=== PATIENT | male | born 1990 | race Two or more races ===

== ENCOUNTER 2017-02-09 01:32 | Emergency (ER) | payer MEDICAID, OTHER ==
[~2017-02-09] VITALS: Ht 175.3 cm; Wt 95.3 kg
[~2017-02-09 01:32] MED LIST: AMOXICILLIN500 MG ORAL; CORTISPORIN EAR10 ML BOTH EARS; DEBROX15 M1 OT
[2017-02-09 02:15] VITALS: BP 143/89
--- NOTE | 2017-02-09 04:04 | Emergency Room Report ---
History of Present Illness General Chief Complaint: General Complaint Source: Patient Present Illness HPI 26-year-old male presents to ED for evaluation. Patient brought in by his uncle who states that patient was acting strangely tonight. Patient admits to using LSD tonight. Patient was "high" at that time that his uncle saw him. Patient states since then he has come down from his "high" he feels better. Clinical states he was concerned because of the patient's behavior and wanted to have him checked out. Patient denies any suicidal or homicidal ideation. Denies hearing voices. States he feels calm. Denies any chest pain or shortness of breath. Denies any other drug use. No aggravating relieving factors. Denies any other associated symptom Allergies: Coded Allergies: No Known Allergies (Unverified , 11/22/13) Patient History Past Medical History: none Past Surgical History: none Pertinent Family History: none Social History: Denies: alcohol use, drug use, smoking Immunizations: UTD Reviewed Nursing Documentation: PMH: Agreed, PSxH: Agreed Nursing Documentation-PMH Past Medical History: No Stated History Review of Systems All Other Systems: negative except mentioned in HPI Physical Exam Vital Signs Date Time Temp Pulse Resp B/P Pulse Ox O2 Delivery O2 Flow Rate FiO2 02/09/17 01:41 98.1 106 16 143/89 100 Room Air Sp02 EP Interpretation: reviewed, normal General Appearance: no apparent distress, alert, GCS 15, non-toxic Head: normocephalic, atraumatic Eyes: bilateral eye PERRL, bilateral eye normal inspection ENT: hearing grossly normal, normal pharynx, no angioedema, normal voice Neck: full range of motion, supple/symm/no masses Respiratory: chest non-tender, lungs clear, normal breath sounds, speaking full sentences Cardiovascular #1: regular rate, rhythm, no edema Cardiovascular #2: 2+ carotid (R), 2+ carotid (L), 2+ radial (R), 2+ radial (L) , 2+ dorsalis pedis (R), 2+ dorsalis pedis (L) Gastrointestinal: normal bowel sounds, non tender, soft, non-distended, no guarding, no rebound Rectal: deferred Genitourinary: normal inspection, no CVA tenderness Musculoskeletal: back normal, gait/station normal, normal range of motion, non- tender Neurologic: alert, oriented x3, responsive, motor strength/tone normal, sensory intact, speech normal Psychiatric: judgement/insight normal, memory normal, mood/affect normal, no suicidal/homicidal ideation Reflexes: 3+ bicep (R), 3+ bicep (L), 3+ tricep (R), 3+ tricep (L), 3+ knee (R) , 3+ knee (L) Skin: normal color, no rash, warm/dry, well hydrated Lymphatic: no adenopathy Medical Decision Making Diagnostic Impression: Primary Impression: Substance abuse ER Course Hospital Course 26-year-old male brought in for evaluation. Behaving strangely after using LSD Differential diagnoses include: Psychosis, EtOH, drug abuse Clinical course patient placed on stretcher. After initial history physical exam reveals a young male in no acute distress. Physical exam unremarkable. Patient is awake alert oriented x3. In triage is appropriately. No signs of hearing voices. No signs of suicidal or homicidal ideation. Reassurance given to uncle. No further intervention required at this time. 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 i. I feel this is a highly complex case requiring extensive working including EKG/Rhythm strip, Xray/CT/US, Blood/urine lab work, repeat exams while in ED, and administration of strong opiates/narcotics for pain control, admission to hospital or close patient follow up. Diagnosis -substance abuse Stable and discharged to home. given referral paperwork for substance abuse counseling. Followup with PMD. Return to ED if symptoms recur or worsen Last Vital Signs Date Time Temp Pulse Resp B/P Pulse Ox O2 Delivery O2 Flow Rate FiO2 02/09/17 02:15 98.1 16 143/89 100 Room Air 02/09/17 01:41 106 Status: improved Disposition: HOME, SELF-CARE Condition: Stable Referrals: REG[facility] MED LUZ,REFERRING (PCP) Patient Instructions: Substance Use Disorder PROSPER THOMPSON M.D. Feb 09, 2017 04:04
== END 2017-02-09 02:15 | disposition home or self-care (01) ==
LOC: EMR 02:08
DX: F19.10 Other psychoactive substance abuse, uncomplicated (principal)
CPT/HCPCS: 99282